=== PATIENT | female | born 1985 | race Caucasian/White ===

== ENCOUNTER 2023-09-21 16:29 | Emergency (ER) | payer BC ==
[2023-09-21 17:34] VITALS: TEMP 98.9
--- NOTE | 2023-09-21 18:15 | ED ---
Abdominal Pain HPI - General Chief Complaint: Abdominal Pain Stated Complaint: R side abd pain Time Seen by Provider: 09/21/23 17:30 Source: patient, RN notes reviewed Mode of arrival: ambulatory Limitations: no limitations - History of Present Illness Initial Comments: This is a 38-year-old female who presents to the emergency department for abdominal pain. Reports right lower lower quadrant abdominal pain starting early this morning. Pain has since started to progress and she has associated nausea. Reports radiation of pain into the back. Denies any changes in bowel/bladder habits or fever/chills. Denies any history of similar symptoms in the past. States that she was leaving for vacation today before the pain started, and [place]. MD Complaint: abdominal pain - Related Data Allergies Allergy/AdvReac Type Severity Reaction Status Date / Time flaxseed Allergy Anaphylaxis Verified 09/21/23 17:01 latex Allergy Rash/Hives Verified 09/21/23 17:01 nickel Allergy Rash/Hives Verified 09/21/23 17:01 sunflower seed Allergy Anaphylaxis Verified 09/21/23 17:01 clindamycin AdvReac Nausea & Verified 09/21/23 17:01 Vomiting Review of Systems ROS Statement: Those systems with pertinent positive or pertinent negative responses have been documented in the HPI. ROS Other: All systems not noted in ROS Statement are negative. Past Medical History Past Medical History: Asthma Additional Past Medical History / Comment(s): PCOS History of Any Multi-Drug Resistant Organisms: None Reported Past Surgical History: Breast Surgery, Section, Hysterectomy Additional Past Surgical History / Comment(s): Breast reduction Past Psychological History: No Psychological Hx Reported Smoking Status: Never smoker Past Alcohol Use History: Occasional Past Drug Use History: None Reported General Exam Limitations: no limitations General appearance: alert, in no apparent distress Head exam: Present: atraumatic, normocephalic, normal inspection Respiratory exam: Present: normal lung sounds bilaterally. Absent: respiratory distress, wheezes, rales, rhonchi, stridor Cardiovascular Exam: Present: regular rate, normal rhythm, normal heart sounds. Absent: systolic murmur, diastolic murmur, rubs, gallop, clicks GI/Abdominal exam: Present: soft, tenderness (RLQ), normal bowel sounds Neurological exam: Present: alert, oriented X3, CN II-XII intact Psychiatric exam: Present: normal affect, normal mood Skin exam: Present: warm, dry, intact, normal color. Absent: rash Course Vital Signs 09/21/23 09/21/23 16:57 20:59 Temperature 98.9 F Pulse Rate 72 59 L Respiratory 18 16 Rate Blood Pressure 139/86 136/72 O2 Sat by Pulse 100 98 Oximetry Medical Decision Making - Medical Decision Making This is a 38 year old female who presents to the emergency department for abdominal pain. Was pt. sent in by a medical professional or institution? @ -No Did you speak to anyone other than the patient for history? @ -No Did you review nursing and triage notes? @ -Yes, and I agree, it is accurate with regards to the patient's symptoms. Were old charts reviewed? @ -No Differential Diagnosis? @ -Differential Abdominal Pain Women: Appendicitis, Cholecystitis, diverticulosis, ischemic bowel, pancreatitis, hepatitis, UTI, gastroenteritis, AAA, incarcerated hernia, bowel obstruction, constipation, inflammatory bowel, hepatitis, peptic ulcer disease, splenic infarction, perforated viscus, vulvitis, ovarian torsion, PID, kidney stone, placenta abruption, this is not meant to be an all-inclusive list EKG interpreted by me (3pts min.)? @ -Not obtained X-rays interpreted by me (1pt min.)? @ -Not obtained CT interpreted by me (1pt min.)? @ -CT scan of the abdomen and pelvis obtained. My interpretation identifies no evidence of bowel wall thickening or free air. U/S interpreted by me (1pt. min.)? @ -Not obtained What testing was considered but not performed? (CT, X-rays, U/S, labs)? Why? @ -None What meds were considered but not given? Why? @ -None Did you discuss the management of the patient with other professionals? @ -No Did you reconcile home meds? @ -No Was smoking cessation discussed for >3mins.? @ -No Was critical care preformed (if so, how long)? @ -No Were there social determinants of health that impacted care today? How? ( Homelessness, low income, unemployed, alcoholism, drug addiction, transportation, low edu. Level, literacy, decrease access to med. care, [facility], rehab)? @ -No Was there de-escalation of care discussed even if they declined? (Discuss DNR or withdrawal of care, Hospice)? @ -No What co-morbidities impacted this encounter? (DM, HTN, Smoking, COPD, CAD, Cancer, CVA, Hep., AIDS, mental health diagnosis, sleep apnea, morbid obesity)? @ -PCOS Was patient admitted / discharged? @ -Discharged. Lab work unremarkable. Urinalysis negative for signs of infection. CT scan of the abdomen and pelvis obtained demonstrating no acute process. There are no abnormalities noted to the appendix or evidence of a ureteral calculus. Findings reviewed with the patient. Symptoms were well- controlled in the emergency department and she was tolerating oral intake afterwards. Advised ibuprofen and Tylenol as needed for pain relief. Patient discharged home in stable condition and advised to follow-up with her primary care provider. Undiagnosed new problem with uncertain prognosis? @ -None Drug Therapy requiring intensive monitoring for toxicity (Heparin, Nitro, Insulin, Cardizem)? @ -None Were any procedures done? @ -None Diagnosis/symptom? @ -Abdominal pain Acute, or Chronic, or Acute on Chronic? @ -Acute Uncomplicated (without systemic symptoms) or Complicated (systemic symptoms)? @ -Uncomplicated Side effects of treatment? @ -None Exacerbation, Progression, or Severe Exacerbation] @ -Not applicable Poses a threat to life or bodily function? @ -No Return precautions reviewed in depth, the patient is instructed to return to the emergency department with any new, worsening, or concerning symptoms. Patient verbalized understanding. This case was discussed in detail with the attending ED physician, Dr. Roach. Presentation, findings, and treatment plan discussed in detail as well. - Lab Data Result diagrams: 09/21/23 19:26 09/21/23 19:26 Lab Results 09/21/23 09/21/23 09/21/23 Range/Units 19:26 19:26 19: WBC 8.8 (3.8-10.6) k/uL RBC 4.60 (3.80-5.40) m/uL Hgb 13.8 (11.4-16.0) gm/dL Hct 43.6 (34.0-46.0) % MCV 94.9 (80.0-100.0) fL MCH 30.1 (25.0-35.0) pg MCHC 31.7 (31.0-37.0) g/dL RDW 13.4 (11.5-15.5) % Plt Count 309 (150-450) k/uL MPV 8.5 Neutrophils % 72 % Lymphocytes % 21 % Monocytes % 4 % Eosinophils % 1 % Basophils % 0 % Neutrophils # 6.4 (1.3-7.7) k/uL Lymphocytes # 1.9 (1.0-4.8) k/uL Monocytes # 0.4 (0-1.0) k/uL Eosinophils # 0.1 (0-0.7) k/uL Basophils # 0.0 (0-0.2) k/uL Sodium (137-145) mmol/L Potassium (3.5-5.1) mmol/L Chloride (98-107) mmol/L Carbon Dioxide (22-30) mmol/L Anion Gap mmol/L BUN (7-17) mg/dL Creatinine (0.52-1.04) mg/dL Est GFR (CKD-EPI)AfAm (>60 ml/min/1.73 sqM) Est GFR (CKD-EPI)NonAf (>60 ml/min/1.73 sqM) Glucose (74-99) mg/dL Plasma Lactic Acid Claudio (0.7-2.0) mmol/L Calcium (8.4-10.2) mg/dL Total Bilirubin (0.2-1.3) mg/dL AST (14-36) U/L ALT (4-34) U/L Alkaline Phosphatase (38-126) U/L Total Protein (6.3-8.2) g/dL Albumin (3.5-5.0) g/dL Amylase (30-110) U/L Lipase (23-300) U/L Urine Color Light Yellow Urine Appearance Clear (Clear) Urine pH 6.5 (5.0-8.0) Ur Specific [place] 1.020 (1.001-1.035) Urine Protein Negative (Negative) Urine Glucose (UA) Negative (Negative) Urine Ketones Negative (Negative) Urine Blood Negative (Negative) Urine Nitrite Negative (Negative) Urine Bilirubin Negative (Negative) Urine Urobilinogen <2.0 (<2.0) mg/dL Ur Leukocyte Esterase Negative (Negative) Urine HCG, Qual Not Detected (Not Detectd) 09/21/23 09/21/23 Range/Units 19:26 19:26 WBC (3.8-10.6) k/uL RBC (3.80-5.40) m/uL Hgb (11.4-16.0) gm/dL Hct (34.0-46.0) % MCV (80.0-100.0) fL MCH (25.0-35.0) pg MCHC (31.0-37.0) g/dL RDW (11.5-15.5) % Plt Count (150-450) k/uL MPV Neutrophils % % Lymphocytes % % Monocytes % % Eosinophils % % Basophils % % Neutrophils # (1.3-7.7) k/uL Lymphocytes # (1.0-4.8) k/uL Monocytes # (0-1.0) k/uL Eosinophils # (0-0.7) k/uL Basophils # (0-0.2) k/uL Sodium 137 (137-145) mmol/L Potassium 4.5 (3.5-5.1) mmol/L Chloride 107 (98-107) mmol/L Carbon Dioxide 26 (22-30) mmol/L Anion Gap 4 mmol/L BUN 15 (7-17) mg/dL Creatinine 0.51 L (0.52-1.04) mg/dL Est GFR (CKD-EPI)AfAm >90 (>60 ml/min/1.73 sqM) Est GFR (CKD-EPI)NonAf >90 (>60 ml/min/1.73 sqM) Glucose 110 H (74-99) mg/dL Plasma Lactic Acid Claudio 0.8 (0.7-2.0) mmol/L Calcium 9.4 (8.4-10.2) mg/dL Total Bilirubin 0.3 (0.2-1.3) mg/dL AST 22 (14-36) U/L ALT 21 (4-34) U/L Alkaline Phosphatase 78 (38-126) U/L Total Protein 7.2 (6.3-8.2) g/dL Albumin 4.4 (3.5-5.0) g/dL Amylase 64 (30-110) U/L Lipase 110 (23-300) U/L Urine Color Urine Appearance (Clear) Urine pH (5.0-8.0) Ur Specific [place] (1.001-1.035) Urine Protein (Negative) Urine Glucose (UA) (Negative) Urine Ketones (Negative) Urine Blood (Negative) Urine Nitrite (Negative) Urine Bilirubin (Negative) Urine Urobilinogen (<2.0) mg/dL Ur Leukocyte Esterase (Negative) Urine HCG, Qual (Not Detectd) - Radiology Data Radiology results: report reviewed, image reviewed Disposition Clinical Impression: Abdominal pain Disposition: HOME SELF-CARE Instructions (If sedation given, give patient instructions): Abdominal Pain (ED) Additional Instructions: Return to the emergency department with any new, worsening, or concerning symptoms. Alternate with ibuprofen and Tylenol as needed for pain relief. We will contact you with the results of your CT scan when it returns. Follow up with your primary care provider in 1-2 days. Is patient prescribed a controlled substance at d/c from ED?: No Referrals: Hunter Landaverde MD [Primary Care Provider] - 1-2 days Time of Disposition: 10:48
[2023-09-21] MEDS: SODIUM CHLORIDE 0.9% 1,000 ML IV STA (19:27)
[2023-09-21] MEDS: KETOROLAC 15 MG/ML 1 ML VIAL IVP STA (19:27)
[2023-09-21] MEDS: MORPHINE SULFATE 2 MG/ML SYRINGE IVP STA (19:28)
[2023-09-21] MEDS: ONDANSETRON 4 MG/2 ML VIAL IVP STA (19:28)
[2023-09-21 19:33] LABS: Appearance,Urine Clear (Clear); Basophils % (A) 0 %; Bilirubin,Urine Negative (Negative); Blood,Urine Negative (Negative); Color,Urine Light Yellow; Eosinophils # (A) 0.1 k/uL (0-0.7); Eosinophils % (A) 1 %; Glucose,Urine (UA) Negative (Negative); HCT 43.6 % (34.0-46.0); HGB 13.8 gm/dL (11.4-16.0); Ketones,Urine Negative (Negative); Leukocyte Esterase,Urine Negative (Negative); Lymphocytes # (A) 1.9 k/uL (1.0-4.8); Lymphocytes % (A) 21 %; MCH 30.1 pg (25.0-35.0); MCHC 31.7 g/dL (31.0-37.0); MCV 94.9 fL (80.0-100.0); Mean Platelet Volume 8.5; Monocytes # (A) 0.4 k/uL (0-1.0); Monocytes % (A) 4 %; Neutrophils # (A) 6.4 k/uL (1.3-7.7); Neutrophils % (A) 72 %; Nitrite,Urine Negative (Negative); PH, Urine 6.5 (5.0-8.0); Platelet Count 309 k/uL (150-450); Protein,Urine Negative (Negative); RDW 13.4 % (11.5-15.5); Urobilinogen,Urine <2.0 mg/dL (<2.0); WBC 8.8 k/uL (3.8-10.6)
[2023-09-21 19:41] LABS: ALT 21 U/L (4-34); AST 22 U/L (14-36); African American GFR (CKD) >90 (>60 ml/min/1.73 sqM); Albumin 4.4 g/dL (3.5-5.0); Alkaline Phosphatase 78 U/L (38-126); Amylase 64 U/L (30-110); Anion Gap 4 mmol/L; Blood Urea Nitrogen 15 mg/dL (7-17); Calcium 9.4 mg/dL (8.4-10.2); Carbon Dioxide 26 mmol/L (22-30); Chloride 107 mmol/L (98-107); Glucose 110 mg/dL (74-99); Lipase 110 U/L (23-300); Non-African American GFR(CKD) >90 (>60 ml/min/1.73 sqM); Potassium 4.5 mmol/L (3.5-5.1); Sodium 137 mmol/L (137-145); Total Bilirubin 0.3 mg/dL (0.2-1.3); Total Protein 7.2 g/dL (6.3-8.2)
[2023-09-21 21:34] VITALS: BP 136/72; PULSE 59; RESP 16
[2023-09-21] MEDS: ACET/COD 300 MG/30 MG STARTER PACK 6 TAB BTL PO STA (23:16)
[2023-09-21] MEDS: ONDANSETRON 4 MG ODT STARTER PACK 2 TAB BTL PO STA (23:17)
[2023-09-21] MEDS: IBUPROFEN 600 MG STARTER PACK 4 TAB BTL PO STA (23:17)
--- NOTE | 2023-09-21 23:33 | CT ---
EXAMINATION TYPE: CT abdomen pelvis w con CT DLP: 1419.1 mGycm, Automated exposure control for dose reduction was used. DATE OF EXAM: 09/21/2023 7:58 PM COMPARISON: None. CLINICAL INDICATION:Female, 38 years old with history of RLQ abdominal pain; RLQ abdominal pain TECHNIQUE: Axial CT of the abdomen and pelvis. Sagittal and coronal reformats were created on a [employer] workstation. Contrast used:100 ml mL of Isovue 300 with IV Contrast, (none if empty) Oral contrast used: without Oral Contrast (none if empty) FINDINGS: LOWER CHEST: Unremarkable ABDOMEN LIVER: Unremarkable GALLBLADDER AND BILE DUCTS: Unremarkable gallbladder. No biliary ductal dilatation. PANCREAS: Unremarkable. SPLEEN: Unremarkable. ADRENAL GLANDS: Unremarkable. KIDNEYS AND URETERS: Kidneys enhance symmetrically. No evidence of hydronephrosis or visible renal ca lculus. The ureters are unremarkable. PELVIS BLADDER: Incompletely distended but grossly unremarkable. REPRODUCTIVE: The uterus appears absent, correlate for hysterectomy. Small soft tissue densities in t he bilateral pelvis may reflect normal sized ovaries. ABDOMEN & PELVIS STOMACH AND BOWEL: Stomach and small bowel are nondistended, no evidence of obstruction. The append ix appears within normal limits. There is some stool and gas seen throughout the colon with no focal acute abnormality shown. There may be a few diverticula distally, without evidence of acute diverti culitis. PERITONEUM/RETROPERITONEUM: No evidence of pneumoperitoneum or free fluid. VASCULATURE: Aorta and major branches are grossly unremarkable. No AAA. Portal veins are enhancing. Splenic vein is patent. SMV appears patent. No mesenteric or portal venous gas. LYMPH NODES: No enlarged nodes by CT size criteria. SOFT TISSUE/ABDOMINAL WALL: Unremarkable for acute process. Tiny fat-containing umbilical hernia. MUSCULOSKELETAL: No acute osseous abnormalities. Mild disc degeneration changes are present throughou t the thoracolumbar spine. IMPRESSION: 1. No acute abnormality in the abdomen or pelvis. 2. No evidence of bowel obstruction, free fluid or free air. Normal appendix.
== END 2023-09-22 00:44 | disposition home or self-care (01) ==
LOC: EC 16:29
DX: R10.31 Right lower quadrant pain (principal); Z91.040 Latex allergy status; Z88.1 Allergy status to other antibiotic agents; Z91.018 Allergy to other foods; Z88.8 Allergy status to other drugs, medicaments and biological substances
CPT/HCPCS: 36415; 80053; 82150; 83605; 83690; 85025; 81003; 81025; 74177; 99284; 96374; 96375 ×2; 96361; J2405; J2270; J1885; S0119; Q9967